=== PATIENT | female | born 1940 | race African-American/Black ===

== ENCOUNTER 2021-01-27 16:47 | Emergency (ER) | payer OTHER ==
[~2021-01-27] VITALS: Ht 172.7 cm; Wt 86.6 kg
[2021-01-27 17:13] VITALS: Ht 172.7 cm; Wt 86.6 kg
[2021-01-27 20:06] LABS: BASOPHIL % 0.4 % (0.2-1.3); PLATELET COUNT 282 x10^3mcL (179-408)
[2021-01-27 20:12] LABS: RED CELL DISTRIBUTION WIDTH 16.4 % (12.3-17.7)
[2021-01-27 20:41] LABS: ALKALINE PHOSPHATASE 72 U/L (46-116); ALT/SGPT 14 U/L (14-59); AST/SGOT 13 U/L (15-37); BILIRUBIN TOTAL 0.5 mg/dL (0.20-1.00); CALCIUM 9.5 mg/dL (8.5-10.1); CARBON DIOXIDE 26.6 mmol/L (21-32); CHLORIDE SERUM 106 mmol/L (98-107); GLUCOSE SERUM 130 mg/dL (74-106); POTASSIUM SERUM 4.1 mmol/L (3.5-5.1); SODIUM SERUM 141 mmol/L (136-145); TOTAL PROTEIN, SERUM 7.4 g/dL (6.4-8.2)
[2021-01-27 21:00] LABS: ALBUMIN 3.3 g/dL (3.4-5.0)
[2021-01-27] MEDS ORDERED: NAPROSYN500 MG PO ×2 (23:18→23:31)
[2021-01-28 00:09] VITALS: BP 121/55
== END 2021-01-28 00:09 | disposition home or self-care (01) ==
LOC: ED 16:47
PROVIDERS: Emergency Medicine
DX: M25.562 Pain in left knee (principal); R22.42 Localized swelling, mass and lump, left lower limb; I10 Essential (primary) hypertension; E11.9 Type 2 diabetes mellitus without complications; M19.90 Unspecified osteoarthritis, unspecified site; Z88.8 Allergy status to other drugs, medicaments and biological substances; Z20.828 Contact with and (suspected) exposure to other viral communicable diseases
CPT/HCPCS: 85378; J1885